=== PATIENT | female | born 1990 | race Two or more races ===

== ENCOUNTER 2019-12-18 04:45 | Day surgery (SDC) | payer MEDICAID ==
[~2019-12-18] VITALS: Ht 167.6 cm; Wt 82.0 kg
[2019-12-18 05:56] LABS: BASOPHILS % 1.2 % (0.0-2.0); EOSINOPHILS % 1.8 % (0.0-5.0); HEMATOCRIT. 39.6 % (36.0-48.0); HEMOGLOBIN. 13.3 g/dL (12.0-16.0); LYMPHOCYTES % 40.6 % (20.0-50.0); MEAN CORPUSCULAR HEMOGLOBIN 29.9 pg (28.0-32.0); MEAN CORPUSCULAR VOLUME 88.8 fL (81.0-99.0); MEAN PLATELET VOLUME 8.3 fl (7.4-10.4); NEUTROPHILS % 49.4 % (40.0-76.0); PLATELET 216 x1000/uL (130-400); RED BLOOD CELL COUNT 4.46 mill/uL (4.2-5.4); RED CELL DISTRIBUTION WIDTH 15.6 % (11.6-14.6)
[2019-12-18] MEDS ORDERED: SODIUM CHLORIDE 0.9% 1,000 ML IV ONE ×2 (05:56→11:43)
[2019-12-18 05:59] LABS: CHLORIDE 113 mEq/L (98-107)
[2019-12-18 06:04] LABS: CLARITY URINE TURBID (CLEAR); COLOR URINE RED (YELLOW); KETONES URINE NEGATIVE (NEGATIVE); LEUKOCYTE ESTERASE URINE 2+ (NEGATIVE); NITRITE URINE POSITIVE (NEGATIVE); OCCULT BLOOD URINE 3+ (NEGATIVE); PROTEIN URINE 2+ (NEGATIVE); SPECIFIC GRAVITY URINE 1.019 (1.005-1.030); UROBILINOGEN URINE 0.2 E.U./dL (0.2-1.0)
[2019-12-18 06:10] LABS: B-HCG QUANTITATIVE 29 mIU/mL (<3)
[2019-12-18] MEDS ORDERED: CEFAZOLIN 1000MG PREMIX 50 ML IV ONE (07:00)
[2019-12-18] MEDS ORDERED: KETOROLAC 30MG/ML VIAL IV ONE (07:00)
[2019-12-18] MEDS ORDERED: DEXT 5%/LR + PITOCIN 20UNITS/L 1,000 ML IV ONE (08:45)
[2019-12-18] MEDS ORDERED: MIDAZOLAM HCL 2 MG/2 ML VIAL ONE (11:14)
[2019-12-18] MEDS ORDERED: PROPOFOL 200MG/20ML VIAL IV ONE (11:14)
[2019-12-18] MEDS ORDERED: FENTANYL CITRATE/PF 50MCG/ML 2ML VIAL ONE (11:14)
[2019-12-18] MEDS ORDERED: GLYCOPYRROLATE 0.2 MG/ML 2ML VIAL ONE (11:14)
[2019-12-18] MEDS ORDERED: ONDANSETRON HCL 4MG/2ML INJ ONE (11:15)
[2019-12-18] MEDS ORDERED: METOCLOPRAMIDE HCL 10MG/2ML VIAL ONE (11:15)
[2019-12-18] MEDS ORDERED: SUCCINYLCHOLINE CHLORIDE 200MG/10ML IV ONE (11:15)
[2019-12-18] MEDS ORDERED: LIDOCAINE HCL/PF 1% 10 MG/ML 5ML VIAL ONE (11:15)
[2019-12-18] MEDS ORDERED: ATROPINE SULFATE 0.1MG/ML 10ML DISP.SYRIN ONE (11:23)
[2019-12-18] MEDS ORDERED: METHYLERGONOVINE MALEATE 0.2 MG/ML ONE (11:36)
[2019-12-18] MEDS ORDERED: MEPERIDINE HCL/PF 25MG/ML CPJ IV PRN (11:45)
[2019-12-18] MEDS ORDERED: HYDROMORPHONE HCL/PF 2MG/ML CPJ IV PRN (11:45)
[2019-12-18] MEDS ORDERED: ONDANSETRON HCL 4MG/2ML INJ IV PRN (11:45)
[2019-12-18] MEDS ORDERED: MORPHINE SULFATE 2 MG/ML CPJ (NOT FOR IM USE) IV PRN (11:45)
[2019-12-18] MEDS ORDERED: IBUPROFEN 800MG TABLET PO NR (12:00)
[2019-12-18] MEDS ORDERED: RHO(D) IMMUNE GLOBULIN 300 MCG/SYR IM PRN (12:00)
[2019-12-18] MEDS ORDERED: MISOPROSTOL 200MCG TABLET PO NR (13:15)
[2019-12-18 13:41] VITALS: BP 115/66
[2019-12-18 14:00] LABS: BASOPHILS % 0.5 % (0.0-2.0); EOSINOPHILS % 1.1 % (0.0-5.0); HEMATOCRIT. 32.7 % (36.0-48.0); LYMPHOCYTES % 29.5 % (20.0-50.0); MEAN CORPUSCULAR VOLUME 88.9 fL (81.0-99.0); MEAN PLATELET VOLUME 8.1 fl (7.4-10.4); MONOCYTES % 4.9 % (2.0-8.0); PLATELET 170 x1000/uL (130-400); RED BLOOD CELL COUNT 3.68 mill/uL (4.2-5.4); RED CELL DISTRIBUTION WIDTH 15.7 % (11.6-14.6)
[2019-12-18] MEDS ORDERED: CARBOPROST TROMETHAMINE 250 MCG/ML AMPUL IM ONE (14:30)
== END 2019-12-18 16:15 | disposition home or self-care (01) ==
LOC: ER 05:33 → OR 06:30
PROVIDERS: ATTEND Obstetrics & Gynecology
DX: N93.9 Abnormal uterine and vaginal bleeding, unspecified (principal); Z79.899 Other long term (current) drug therapy; Z98.890 Other specified postprocedural states
CPT/HCPCS: 36415; 58558; 76830; 76856; 80053; 81003; 84702; 85025; 86850; 86900; 86901; 87086; 88305; J0330; J0461; J0690; J1885; J2210; J2250; J2405; J2590; J2704; J2765; J3010; J3490; J7030